=== PATIENT | female | born 1945 | race Caucasian/White ===

== ENCOUNTER 2017-09-07 09:55 | Emergency (ER) | payer MEDICARE, OTHER ==
[2017-09-07 10:20] LABS: Urine Bilirubin Negative (NEGATIVE); Urine Ketone Negative (NEGATIVE); Urine Nitrite Negative (NEGATIVE); Urine Protein Negative (NEGATIVE); Urine Urobilinogen Normal (NORMAL)
[2017-09-07 10:22] LABS: Urine Blood 10 /ul (NEGATIVE)
[2017-09-07 10:28] LABS: Urine Appearance Slightly Cloudy; Urine Bacteria 1+; Urine Color Yellow; Urine RBC None Seen /hpf (0-5); Urine WBC 0-5 /hpf (0-5)
--- NOTE | 2017-09-07 10:47 | ERNOTE ---
Abdominal HPI - Narrative Date of Service: 09/07/17 - General Chief Complaint: Abdominal Pain Time Seen by Provider: 09/07/17 10:10 Source: patient Exam Limitations: no limitations - Immun/Allergies/Home Medications Immunizatons: IMMUNIZATION HX Immunizations Up to Date Yes History of Influenza Vaccine Yes Hx Pneumococcal Vaccination Yes Allergies/Adverse Reactions: Allergies aspirin [From Aspirin Regimen Ernesto/Calcium] Allergy (Verified 09/07/17 10:07) morphine Allergy (Verified 09/07/17 10:07) Quinolones Allergy (Verified 09/07/17 10:07) tetracycline [Tetracycline] Allergy (Verified 09/07/17 10:07) Home Medications: HOME MEDICATIONS Acetaminophen [Tylenol] 650 mg PO HS PRN 10/10/12 [Last Taken Unknown] Calcium Carbonate [Calcium] 500 mg PO DAILY 10/10/12 [Last Taken Unknown] Cholecalciferol (Vitamin D3) [Vitamin D] 400 unit PO DAILY 10/10/12 [Last Taken Unknown] Flaxseed Oil [Flax Seed Oil] 1,000 mg PO DAILY 10/10/12 [Last Taken Unknown] Levothyroxine Sodium [Synthroid] 50 mcg PO DAILY 10/10/12 [Last Taken Unknown] Multivitamin [Multivitamins] 1 each PO DAILY 10/10/12 [Last Taken Unknown] Amoxicillin 500 mg PO BID #20 capsule 09/07/17 [Last Taken Unknown] metroNIDAZOLE [Flagyl] 500 mg PO Q12H #20 tab 09/07/17 [Last Taken Unknown] - History of Present Illness Narrative: Pt is a 72 year old female who presents with complaints of a 14 days history of diarrhea. She has follow up with Dr. Arceo on this who sent a stool culture, which prelim results here are negative. She came in today due to worsening abdominal cramping. She has taken Tylenol for this with minimal relief of symptoms. She states that eating or drinking and a full bladder exacerbate symptoms, nothing makes them better. She endorses occasional nausea, no emesis. Denies fever/chills, blood in stool or urine, dizziness or lightheadedness, no CP or SOB. She did have a colonoscopy last year which noted diverticulosis. Date (Duration): 08/24/17 Timing: constant, getting worse Quality: moderate, cramping Activities at Onset: none Modifying Factors - (Improves): Present: analgesics, urinating Modifying Factors - (Worsens): Present: eating Associated Symptoms: Present: nausea, loss of appetite. Absent: back pain, chest pain, neck pain, diaphoresis, diarrhea-gross blood, diarrhea-mucous, fever /chills, vomiting, syncope Prior Abdominal Problems: Present: none Prior Treatment: Present: recently seen Review of Systems - Review of Systems Constitutional: Present: fatigue. Absent: fever, chills EYE: Present: no symptoms reported ENT: Present: no symptoms reported Respiratory: Present: no symptoms reported Cardiology: Present: no symptoms reported Gastrointestinal/Abdominal: Present: See HPI, nausea, diarrhea, abdominal pain, eating less, drinking less. Absent: vomiting, constipation Genitourinary: Present: no symptoms reported Musculoskeletal: Present: no symptoms reported Skin: Present: no symptoms reported Neurological: Present: no symptoms reported Endocrine: Present: increased thirst Hematologic/Lymphatic: Present: no symptoms reported - Patient's Past Medical History Patient History - Medical: Depression, Hypothyroidism Patient History - Cardiac/Respiratory: No pertinent hx Patient History - Cancer: No Hx of Cancer Patient History - Surgical Procedures: Cataracts, Colonoscopy, , Other , Orthopedic Patient History - Other: None LMP (females 10-50): post - Social History Living Situations: home Psych History: Hx of Anxiety, Hx of Depression Smoking Status: Never smoker Alcohol Use: occasionally Drug Use: none - Immunizations Immunizations Up to Date: Yes Hx Pneumococcal Vaccination: Yes History of Influenza Vaccine: Yes Physical Exam - Physical Exam General Appearance: Present: wd/wn, alert, no apparent distress Head Exam: Present: normal inspection Neck: Present: normal inspection Respiratory: Present: no respiratory distress, normal breath sounds, no accessory muscle use, chest nontender, lungs clear Cardiovascular/Chest: Present: regular rate, rhythm, no murmur, normal peripheral pulses Peripheral Pulses: N=norm/S=strong/W=weak/B=bound/A=absent: Dorsalis-pedis (R): Normal, Dorsalis-pedis (L): Normal Gastrointestinal/Abdominal: Present: normal bowel sounds, nondistended, soft, no organomegaly, tenderness - LLQ. Absent: distended, rebound, McBurney sign, Obturator sign, Salas sign, mass, hernia Back Exam: Present: normal inspection, no CVA tenderness Extremity Exam: Present: normal inspection, normal range of motion, no edema Neurological Exam: Present: alert, oriented, normal mood/affect, no motor/ sensory deficits Skin Exam: Present: normal color, warm/dry ED Progress - Results and Orders Patient's Lab Results:: I have reviewed the patient's lab results. - Vital Signs Patient's Vital Signs:: I have reviewed the patient's vital signs. Vital Signs: Vital Signs 09/07/17 10:01 Temperature 36.5 C Pulse Rate 88 Respiratory 16 Rate Blood Pressure 142/84 O2 Sat by Pulse 100 Oximetry - X-Ray X-Ray #1 X-Ray: abdomen Interpretation: Reviewed by me X-ray Comments: Non obstructive gas bowel pattern No free air No evidence of obstruction or ilieus Slight wedging of L2-pt does not complain of any vertebral tenderness and denies any recent trauma. - Progress/Reassessment Chief Complaint: Abdominal Pain Progress:: Unchanged Plan - Plan Plan: Test results discussed with pt. C-diff testing positive in the ER. Radiology reports discussed with pt as well as my reluctancy to order a CT scan to definitively diagnose diverticulitis as the treatment will be the same. Pt has a Quinolone allergy so she will be treated with Amoxicillin and Flagyl. I explained that constipation and GI infections (such as c-diff) can precipitate bouts of diverticulitis and I have further attempted explain the importance of increased fiber, such as benefiber, and dietary modifications including a probiotic. Pt states that she does not want to take a probiotic, she has "been eating healthy for 20 plus years without problem so does not want to take manufactured fiber and doesn't like the increased gas it causes." I again expressed importance of dietary modification and explained to follow up with her family PCP for further instructions. Her daughter reported that her two children had diarrhea following a visit with her and they will need to follow up with their PCP for testing. Departure Clinical Impression: C. difficile diarrhea, Diverticulitis - Departure Disposition: Home self-care Condition: Good Instructions: Diverticulitis, [id number], Clostridium Difficile Infection, [id number], Low-Fiber Diet Additional Instructions: As discussed with you, you have a c-diff infection of the bowel. This can be spread through contact of feces, pt ensure very vigorous hand hygiene and do not have contact with immunocompromised patients or small children until diarrhea has cleared. You will be treated with 10 days of antibiotics, take full does even if symptoms improve. If symptoms do not improve after antibiotics , please follow up with your PCP. Increase fluid intake Do not take anything such as Immodium to stop diarrhea. Follow low fiber diet with slow introduction of fiber as stated in instructions to assist with decreasing bouts of diverticulitis. Please have grandchildren follow up with PCP for further evaluation. Referrals: Becki Arceo MD [Primary Care Provider] - Prescriptions: Amoxicillin 500 mg PO BID #20 capsule metroNIDAZOLE [Flagyl] 500 mg PO Q12H #20 tab
[2017-09-07 11:00] LABS: Hematocrit 40.7 % (37.0-47.0); Hemoglobin 13.2 gm/dL (12.5-16.0); Mean Cell Volume 85.3 fl (78-100); Mean Corpuscular Hemoglobin 27.7 pg (27-31); Mean Corpuscular Hgb Conc 32.4 g/dl (32-36); Mean Platelet Volume 9.5 fl (6.0-9.5); Neutrophil # 7.7 K/mm3 (1.3-6.0); Neutrophil % 80.9 % (42-75.0); Platelet Count 314 K/mm3 (150-450); Red Blood Count 4.77 M/mm3 (4.2-5.4); Red Cell Distribution Width 14.7 % (11.5-14.0); White Blood Count 9.6 K/mm3 (4.0-10.5)
[2017-09-07 11:10] LABS: Albumin * 3.4 gm/dl (3.4-5.0); Anion Gap 9.8 mmol/L (6.8-13.8); BUN/Creatinine Ratio 9.6 (9.0-21.6); Bilirubin, Total 0.4 mg/dL (0.0-1.1); Ca. Corrected For Albumin 8.9 mg/dL (8.4-10.2); Calcium * 8.7 mg/dL (7.9-10.9); Carbon Dioxide 29.3 mmol/L (24-32.6); Potassium 4.1 mmol/L (3.4-4.6); Total Protein 7.7 gm/dL (6.2-8.2)
[2017-09-07 12:07] VITALS: BP 134/99
[2017-09-07] MEDS ORDERED: DICYCLOMINE HCL 10 MG/ML AMPUL IM ONE ×2 (12:21→12:43)
== END 2017-09-07 12:53 | disposition home or self-care (01) ==
LOC: ER 09:55
DX: A04.72 Enterocolitis due to Clostridium difficile, not specified as recurrent (principal); K57.92 Diverticulitis of intestine, part unspecified, without perforation or abscess without bleeding; E03.9 Hypothyroidism, unspecified